=== PATIENT | female | born 1980 | race Caucasian/White ===

== ENCOUNTER 2021-11-17 03:26 | Emergency (ER) | payer SELFPAY ==
[2021-11-17 04:37] LABS: HEMOGLOBIN 11.6 gm/dl (12.3-15.3); RED BLOOD COUNT 3.95 M/UL (4.00-5.10); WHITE BLOOD COUNT 9.3 K/UL (4.5-11.0)
[2021-11-17 04:53] LABS: BUN/CREATININE RATIO 12 (0-10)
[2021-11-17] MEDS ORDERED: OMNICEF 300 MG300 MG PO (05:26)
[2021-11-17] MEDS ORDERED: BACTRIM DS TAB1 EACH PO (05:26)
[2021-11-17] MEDS ORDERED: ZOFRAN ODT 4 MG4 MG PO (05:26)
== END 2021-11-17 05:38 | disposition home or self-care (01) ==
LOC: ER1 03:26
PROVIDERS: Physician Assistant
DX: N39.0 Urinary tract infection, site not specified (principal); L72.9 Follicular cyst of the skin and subcutaneous tissue, unspecified; R19.7 Diarrhea, unspecified; Z88.0 Allergy status to penicillin; Z20.822 Contact with and (suspected) exposure to COVID-19
CPT/HCPCS: 80053; 81001; 83690; 83735; 84703; 85025; 87077; 87086; 87186; 99284; U0002